=== PATIENT | female | born 1985 | race Caucasian/White ===

== ENCOUNTER 2017-01-19 11:22 | Emergency (ER) | payer OTHER ==
[~2017-01-19] VITALS: Ht 162.6 cm; Wt 102.0 kg
[2017-01-19 11:27] VITALS: Ht 162.6 cm; Wt 102.0 kg
[2017-01-19] MEDS ORDERED: HYDROCODONE/APAP (5/325) TAB PO STA (12:16)
[2017-01-19] MEDS ORDERED: CEFTRIAXONE 1 GM INJ IM ONE (12:30)
[2017-01-19] MEDS ORDERED: AMOX1TAB9 PO (12:42)
[2017-01-19] MEDS ORDERED: HYDR-906 PO (12:42)
[2017-01-19 12:53] VITALS: PULSE 108
--- NOTE | 2017-01-19 14:36 | ERD ---
ER Documentation Chief Complaint Chief Complaint left facial swelling x 2 days and chest pain x 1 month anxious HPI 31-year-old female sent to the emergency department complaining of left facial swelling for the past 2 days. Patient does admit to having frontal teeth pain. She denies any fevers. She states that she took ibuprofen for pain and unsure if the swelling is due to allergic reaction. She denies any itchiness, shortness of breath. ROS All systems reviewed and are negative except as per history of present illness. Medications Home Meds Active Scripts Hydrocodone/Acetaminophen (Columbia 5-325 Tablet) 1 Each Tablet, 1 EACH PO Q6 Y for PAIN, #20 TAB Prov:JAIRON DUMONT PA-C 01/19/17 Amoxicillin/Potassium Clav (Amox-Clav 500-125 mg Tablet) 500-125 mg Tab, 1 TAB PO BID for 10 Days, TAB Prov:JAIRON DUMONT PA-C 01/19/17 Allergies Allergies: Coded Allergies: No Known Allergy (Verified Allergy, Unknown, 07/22/06) PMhx/Soc Medical and Surgical Hx: pt denies Medical Hx, pt denies Surgical Hx Hx Alcohol Use: No Hx Substance Use: No Hx Tobacco Use: No Smoking Status: Never smoker Physical Exam Vitals Vital Signs Date Time Temp Pulse Resp B/P Pulse Ox O2 Delivery O2 Flow Rate FiO2 01/19/17 12:53 108 01/19/17 11:27 97.5 117 18 101/64 98 Physical Exam Const: Well-developed nontoxic Head: Atraumatic Eyes: Normal Conjunctiva ENT: Normal External Ears, Nose Poor dental hygiene, tenderness in the frontal teeth Neck: Full range of motion..~ No meningismus. Resp: Clear to auscultation bilaterally Cardio: Regular rate and rhythm, no murmurs Abd: Soft, non tender, non distended. Normal bowel sounds Skin: Facial swelling inferior to the orbit of the left cheek, no erythema induration or warmth. Back: No midline or flank tenderness Ext: No cyanosis, or edema Neur: Awake and alert Psych: Normal Mood and Affect Results 24 hrs Current Medications Medications (Trade) Dose Ordered Sig/Viraj Route PRN Reason Start Time Stop Time Status Last Admin Dose Admin Acetaminophen/ Hydrocodone Bitart (Columbia (5/325)) 2 tab ONCE STAT PO 01/19/17 12:16 01/19/17 12:22 DC 01/19/17 12:43 Ceftriaxone Sodium (Rocephin) 1 gm ONCE ONCE IM 01/19/17 12:30 01/19/17 12:31 DC 01/19/17 12:51 Procedures/MDM This is a 31-year-old female presenting to the emergency department with left- sided facial swelling likely due to a dental infection. There was no evidence of deep space infection, orbital cellulitis, facial cellulitis. Patient was given Tylenol, she stable to be discharged home to follow-up with a dentist tomorrow. Patient was given Rocephin in the ED and a prescription for Augmentin as an outpatient. I given her short course of Columbia. Discussed return to the ER for any worsening signs or symptoms are not improving as expected she understands and agrees with this plan Departure Diagnosis: Primary Impression: Dental infection Condition: Stable Patient Instructions: Dental Pain, Tooth Abscess Referrals: [facility] ([facility]) Additional Instructions: You need to see a dentist tomorrow as soon as possible for dental evaluation and possible extraction Take all medicines as directed. You have been given a medicine which may cause drowsiness.DO NOT DRIVE OR OPERATE DANGEROUS MACHINERY while taking this medicine! Return to this facility if you are not improving as expected. JAIRON DUMONT PA-C Jan 19, 2017 14:35
== END 2017-01-19 13:21 | disposition home or self-care (01) ==
LOC: FTE 11:22
DX: K04.7 Periapical abscess without sinus (principal)
CPT/HCPCS: 96372; J0696; Z7502; Z7610

== ENCOUNTER 2017-04-14 08:45 | Emergency (ER) | END 2017-04-14 10:17 | disposition home or self-care (01) ==

== ENCOUNTER 2017-07-05 16:50 | Emergency (ER) | END 2017-07-05 19:52 | disposition home or self-care (01) ==